=== PATIENT | male | born 1995 ===

== ENCOUNTER 2017-07-26 10:38 | Emergency (ER) | payer SELFPAY ==
[2017-07-26 10:43] VITALS: RESP 18; O2SAT 99
[2017-07-26] MEDS ORDERED: Bacitracin 500 Units/gm Oint Foilpak UD TOP ONE (12:14)
[2017-07-26] MEDS ORDERED: Lidocaine 1% Inj (20ml) INFIL ONE (12:14)
[2017-07-26] MEDS ORDERED: Lidocaine 1% Inj (20ml) ONE (12:17)
[2017-07-26] MEDS ORDERED: Bacitracin 500 Units/gm Oint Foilpak UD ONE (12:18)
--- NOTE | 2017-07-26 12:19 | C.PDOC ---
History Of Present Illness Benito Bhat is a 22 year old male, with no past medical history, who presents to the emergency department due to sustained injury to right hand onset for 2 hours. Patient reports he was playing cricket but when he tried to catch the ball, the ball went through his fingers lacerating the interdigital web. No further medical complaints. PMD: None provided. Time Seen by Provider: 07/26/17 11:03 Chief Complaint (Nursing): Abnormal Skin Integrity History Per: Patient History/Exam Limitations: no limitations Onset/Duration Of Symptoms: Hrs (x2) Current Symptoms Are (Timing): Still Present Location Of Injury: Right: Hand Past Medical History Reviewed: Historical Data, Nursing Documentation, Vital Signs Vital Signs: Last Vital Signs Temp 97.7 F 07/26/17 13:34 Pulse 57 L 07/26/17 13:34 Resp 18 07/26/17 13:34 BP 109/72 07/26/17 13:34 Pulse Ox 99 07/26/17 13:39 - Medical History PMH: No Chronic Diseases Family History: States: Unknown Family Hx - Social History Hx Tobacco Use: No Hx Alcohol Use: No Hx Substance Use: No - Immunization History Hx Tetanus Toxoid Vaccination: No Hx Influenza Vaccination: No Hx Pneumococcal Vaccination: No Review Of Systems Except As Marked, All Systems Reviewed And Found Negative. Musculoskeletal: Positive for: Hand Pain (right hand laceration to the interdigital web) Physical Exam - Physical Exam Appears: Well, Non-toxic, No Acute Distress Skin: Normal Color, Warm, Dry Head: Atraumatic, Normacephalic Eye(s): bilateral: Normal Inspection, PERRL, EOMI Ear(s): Bilateral: Normal Nose: Normal Extremity: Normal ROM, Other (laceration to the right hand interdigital web) Neurological/Psych: Oriented x3, Normal Speech, Normal Motor, Normal Sensation ED Course And Treatment O2 Sat by Pulse Oximetry: 99 (RA) Pulse Ox Interpretation: Normal Laceration - Laceration Repair right hand interdigital web Wound Length (In cm): 3 Description Of Wound: Linear, Clean Wound Cleansed With: Sterile Saline Anesthesia: Lidocaine 1% Wound Examination: Irrigated With Saline (high pressure irrigation), No FB With Wound Exploration, No Tendon Injury With Wound Exploration Wound Closure: Suture (4.0 prolene x 7) Wound Complexity: Simple Medical Decision Making Medical Decision Making: Initial Impression: Laceration to right hand interdigital web Initial Plan: --Adacel 0.5 ml IM --Bacitracin 1 ea top --Lidocaine 1% --Tylenol 350 mg PO --reevaluation Scribe Attestation The documentation for this encounter was entered by Isiah Marte acting as a scribe for Renetta BRENNAN All medical record entries made by the Scribe were at my direction and personally dictated by me. I have reviewed the chart and agree that the record accurately reflects my personal performance of the history, physical exam, medical decision making, and the department course for this patient. I have also personally directed, reviewed, and agree with the discharge instructions and disposition. Disposition Counseled Patient/Family Regarding: Diagnosis, Need For Followup - Disposition Referrals: [facility] [Outside] [facility] [Outside] Disposition: HOME/ ROUTINE Disposition Time: 12:44 Condition: STABLE Additional Instructions: FOLLOW UP IN CLINIC IN 2 DAYS FOR WOUND CHECK, SUTURE REMOVAL IN 10-14 DAYS. APPLY BACITRACIN OINTMENT 3 TIMES A DAY WITH BAND AID. IF REDNESS, SWELLING OR DISCHARGE DEVELOP RETURN TO ED. Instructions: Laceration (ED) Forms: [employer] ([place] Islander) - Clinical Impression Clinical Impression: Laceration of hand
[2017-07-26 13:36] VITALS: BP 109/72; PULSE 57; TEMP 97.7
== END 2017-07-26 13:37 | disposition home or self-care (01) ==
LOC: C.ER 10:38
DX: S61.411A Laceration without foreign body of right hand, initial encounter (principal); W21.09XA Struck by other hit or thrown ball, initial encounter; Y93.69 Activity, other involving other sports and athletics played as a team or group; Y92.39 Other specified sports and athletic area as the place of occurrence of the external cause; Z23 Encounter for immunization

== ENCOUNTER 2017-07-28 12:12 | Emergency (ER) | payer SELFPAY ==
[2017-07-28 12:37] VITALS: BP 94/62; PULSE 69; RESP 18; TEMP 98.1; O2SAT 100
--- NOTE | 2017-07-28 12:48 | C.PDOC ---
History Of Present Illness 22 year old male presents to the ED for evaluation of a wound to the right hand with new onset of swelling to the top of the hand. Patient was seen on 2016 and stitches were placed. He denies discharge or any other associated symptoms. Time Seen by Provider: 07/28/17 12:38 Chief Complaint (Nursing): Wound Check History Per: Patient History/Exam Limitations: no limitations Onset/Duration Of Symptoms: Days Ago (sutures placed on ) Current Symptoms Are (Timing): Still Present Location Of Injury: Right: Hand (swelling at dorsum of right hand where sutures are present ) Quality Of Symptoms: Swollen Recent travel outside of the [place]: No Additional History Per: Prior Records Past Medical History Reviewed: Historical Data, Nursing Documentation, Vital Signs Vital Signs: Last Vital Signs Temp 98.1 F 07/28/17 12:36 Pulse 69 07/28/17 12:36 Resp 18 07/28/17 12:36 BP 94/62 L 07/28/17 12:36 Pulse Ox 100 07/28/17 13:19 Family History: States: Unknown Family Hx - Social History Hx Tobacco Use: No Hx Alcohol Use: No Hx Substance Use: No - Immunization History Hx Tetanus Toxoid Vaccination: No Hx Influenza Vaccination: No Hx Pneumococcal Vaccination: No Review Of Systems Constitutional: Negative for: Fever, Chills Cardiovascular: Negative for: Chest Pain Respiratory: Negative for: Cough Gastrointestinal: Negative for: Nausea, Vomiting Skin: Positive for: Other (swelling to top right hand ). Negative for: Rash Physical Exam - Physical Exam Appears: Non-toxic, No Acute Distress Skin: Warm, Dry, No Rash, Other (Healing sutures intact to dorsum of right hand with swelling at first metacarpal. Questionable erythema. No discharge or signs of infection.) Head: Atraumatic, Normacephalic Eye(s): bilateral: Normal Inspection Chest: Symmetrical, No Deformity Cardiovascular: Rhythm Regular, No Murmur Extremity: Normal ROM, No Tenderness, Capillary Refill (good capillar refill, less than two seconds ) Neurological/Psych: Oriented x3 ED Course And Treatment O2 Sat by Pulse Oximetry: 100 (room air ) Progress - Data Reviewed Data Reviewed: Old records Disposition Counseled Patient/Family Regarding: Diagnosis, Need For Followup, Rx Given - Disposition Referrals: [facility] [Outside] [facility] [Outside] [facility] [Provider Group] Disposition: HOME/ ROUTINE Disposition Time: 12:47 Condition: GOOD Additional Instructions: RETURN 08/02 FOR POSSIBLE SUTURE REMOVAL. RETURN IF WORSENING SYMPTOMS Prescriptions: Cephalexin [cephalexin] 500 mg PO Q6 #28 cap Instructions: Care For Your Stitches (ED) Forms: [employer] (Grenadian) - Clinical Impression Clinical Impression: Swelling of hand, Visit for wound check - Scribe Statement The provider has reviewed the documentation as recorded by the Scribestevan Louis All medical record entries made by the Scribe were at my direction and personally dictated by me. I have reviewed the chart and agree that the record accurately reflects my personal performance of the history, physical exam, medical decision making, and the department course for this patient. I have also personally directed, reviewed, and agree with the discharge instructions and disposition.
== END 2017-07-28 12:54 | disposition home or self-care (01) ==
LOC: C.ER 12:12
DX: Z51.89 Encounter for other specified aftercare (principal); M79.89 Other specified soft tissue disorders

== ENCOUNTER 2017-08-04 15:52 | Emergency (ER) | payer SELFPAY ==
[2017-08-04 16:38] VITALS: BMI 21.7
--- NOTE | 2017-08-04 18:10 | C.PDOC ---
History Of Present Illness 22 year old male presents to the ED for a wound check. Patient sustained a laceration to his right hand nine days ago and had 7 sutures placed. Patient denies fever, chills, pain or discharge from the wound. Time Seen by Provider: 08/04/17 17:10 Chief Complaint (Nursing): Wound Check History Per: Patient History/Exam Limitations: no limitations Onset/Duration Of Symptoms: Days Ago (9) Current Symptoms Are (Timing): Still Present Location Of Injury: Right: Hand Quality Of Symptoms: denies: Painful, Itching, Swollen, Draining Additional History Per: Patient Past Medical History Reviewed: Historical Data, Nursing Documentation, Vital Signs Vital Signs: Last Vital Signs Temp 98 F 08/04/17 18:14 Pulse 72 08/04/17 18:14 Resp 20 08/04/17 18:14 BP 101/67 08/04/17 18:14 Pulse Ox 100 08/04/17 18:14 - Medical History PMH: No Chronic Diseases Surgical History: No Surg Hx Family History: States: Unknown Family Hx - Social History Hx Tobacco Use: No Hx Alcohol Use: No Hx Substance Use: No - Immunization History Hx Tetanus Toxoid Vaccination: No Hx Influenza Vaccination: No Hx Pneumococcal Vaccination: No Review Of Systems Constitutional: Negative for: Fever, Chills Skin: Positive for: Other (wound check to right hand s/p suture placement ) Physical Exam - Physical Exam Appears: Non-toxic, No Acute Distress Skin: Normal Color, Warm, Dry, Other (7 intact sutures between 2nd and 3rd webbed space. laceration is clean, dry and partially intact ) Extremity: Normal ROM, No Tenderness, Capillary Refill (less than 2 seconds ), No Swelling Neurological/Psych: Oriented x3, Normal Speech, Normal Cognition ED Course And Treatment O2 Sat by Pulse Oximetry: 99 (on RA) Pulse Ox Interpretation: Normal Medical Decision Making Medical Decision Making: Progress: 7 sutures removed successfully. Sterile steri strips applied to the affected area. Patient tolerated well. wound ope in small 2-3 mm area. steristrips applied will allow healing by secondary intention Disposition - Disposition Referrals: Bonny Henao MD [Staff Provider] - Disposition: HOME/ ROUTINE Disposition Time: 18:00 Condition: STABLE Additional Instructions: please follow up with your doctor. return to er with worsening symptoms or concerns. please see specialist. Instructions: Stitches Removal (ED) Forms: [employer] (Maltese) - Clinical Impression Clinical Impression: Visit for suture removal - Scribe Statement The provider has reviewed the documentation as recorded by the Scribe (Edilma Waters) Provider Attestation: All medical record entries made by the Scribe were at my direction and personally dictated by me. I have reviewed the chart and agree that the record accurately reflects my personal performance of the history, physical exam, medical decision making, and the department course for this patient. I have also personally directed, reviewed, and agree with the discharge instructions and disposition.
--- NOTE | 2017-08-04 18:11 | C.PDOC ---
Time Seen by Provider: 08/04/17 17:10 Chief Complaint (Nursing): Wound Check Past Medical History Vital Signs: Last Vital Signs Temp 98.0 F 08/04/17 16:37 Pulse 82 08/04/17 16:37 Resp 16 08/04/17 16:37 BP 98/64 L 08/04/17 16:37 Pulse Ox 99 08/04/17 16:37 Family History: States: Unknown Family Hx - Social History Hx Tobacco Use: No Hx Alcohol Use: No Hx Substance Use: No - Immunization History Hx Tetanus Toxoid Vaccination: No Hx Influenza Vaccination: No Hx Pneumococcal Vaccination: No ED Course And Treatment O2 Sat by Pulse Oximetry: 99 Disposition - Disposition Referrals: Bonny Henao MD [Staff Provider] - Disposition: HOME/ ROUTINE Disposition Time: 18:00 Condition: STABLE Additional Instructions: please follow up with your doctor. return to er with worsening symptoms or concerns. please see specialist. Instructions: Stitches Removal (ED) - Clinical Impression Clinical Impression: Visit for suture removal
[2017-08-04 18:15] VITALS: BP 101/67; PULSE 72; RESP 20; TEMP 98
[2017-08-04 18:56] VITALS: O2SAT 99
== END 2017-08-04 18:14 | disposition home or self-care (01) ==
LOC: C.ER 15:52
DX: Z48.02 Encounter for removal of sutures (principal)